=== PATIENT | male | born 1975 | race African-American/Black ===

== ENCOUNTER 2019-10-01 08:12 | Emergency (ER) | payer BC, OTHER ==
[~2019-10-01] VITALS: Ht 185.4 cm; Wt 90.7 kg
[~2019-10-01 08:12] MED LIST: NOHOMEMEDICATIONS
[2019-10-01] MEDS ORDERED: RISPERDAL 1 MG T1 MG PO (08:34)
[2019-10-01 08:47] LABS: ABSOLUTE NEUTROPHILS 6.5 thou/uL (1.4-8.2); BASOPHILS 0.5 % (0.0-2.0); EOSINOPHILS 0.3 % (0.0-3.0); HEMATOCRIT 39.3 % (42.0-52.0); HEMOGLOBIN 13.2 gm/dL (14.0-18.0); LYMPHOCYTES 15.9 % (24.0-44.0); MCH 29.9 pg (26.0-34.0); MCHC 33.6 g/dL (28.0-37.0); MCV 89.2 fL (80.0-100.0); MONOCYTES 9.7 % (1.0-8.0); PLATELET COUNT 208 thou/uL (150-400); POLYS 73.6 % (36.0-66.0); RDW 13.9 % (10.5-14.5); WBC 8.9 thou/uL (4.0-11.0)
[2019-10-01 09:32] LABS: CALCIUM 9.2 mg/dL (8.5-10.1); CREATININE 1.1 mg/dL (0.7-1.3); POTASSIUM 3.7 mmol/L (3.5-5.1)
[2019-10-01 09:39] LABS: ALBUMIN 3.8 g/dL (3.4-5.0); TOTAL BILIRUBIN 1.1 mg/dL (0.2-1.0); TOTAL PROTEIN 8.4 g/dL (6.4-8.2)
[2019-10-01 09:45] LABS: URINE BILIRUBIN NEGATIVE (Negative); URINE BLOOD TRACE (Negative); URINE CLARITY CLEAR; URINE COLOR YELLOW; URINE GLUCOSE-RANDOM* NEGATIVE (Negative); URINE KETONES NEGATIVE (Negative); URINE LEUKOCYTES-REFLEX NEGATIVE (Negative); URINE NITRITE-REFLEX NEGATIVE (Negative); URINE PROTEIN (DIPSTICK) NEGATIVE (Negative); URINE UROBILINOGEN 0.2 E.U./dl (0.2-1.0)
[2019-10-01] MEDS ORDERED: NAPROSYN500 MG PO (11:09)
[2019-10-01] MEDS ORDERED: TRAMADOL 50 MG50 MG PO (11:09)
[2019-10-01] MEDS ORDERED: DOXYCYCLINE 10100 MG PO (11:09)
[2019-10-01 11:42] VITALS: BP 120/92
== END 2019-10-01 11:42 | disposition home or self-care (01) ==
LOC: ER 08:12
PROVIDERS: Emergency Medicine
DX: J18.9 Pneumonia, unspecified organism (principal); R07.81 Pleurodynia; F17.210 Nicotine dependence, cigarettes, uncomplicated; Z79.899 Other long term (current) drug therapy